=== PATIENT | male | born 1995 | race Caucasian/White ===

== ENCOUNTER 2019-08-23 09:17 | Emergency (ER) | payer BC, OTHER ==
[2019-08-23 10:48] LABS: Influenza A Molecular Negative (Negative); Influenza B Molecular Negative (Negative)
--- NOTE | 2019-08-23 11:03 | UC ---
Throat Pain/Nasal José Miguel HPI - HPI Summary HPI Summary: 23-year-old male presents with 1-1/2 week history of nasal congestion, sinus pressure, postnasal drip, and mild sore throat. No measured fever however states felt feverish and chilled 5-6 days ago although this has resolved over the last several days. No known contact with persons isolated for or diagnosed with COVID-19. Reports that he did travel one week ago and was in [facility] [place] in [place] however was already having symptoms at that time. States symptoms have been improving over the last 2-3 days. Denies ear pain, dysphagia , cough, chest pain, shortness of breath, abdominal pain, nausea, vomiting, or diarrhea. - History of Current Complaint Chief Complaint: UCGeneralIllness Stated Complaint: CONGESTION, POSS FEVER Time Seen by Provider: 08/23/19 10:16 Hx Obtained From: Patient Pain Intensity: 0 - Allergies/Home Medications Allergies/Adverse Reactions: Allergies Allergy/AdvReac Type Severity Reaction Status Date / Time No Known Allergies Allergy Verified 08/23/19 10:11 Home Medications: Home Medications NK [No Home Medications Reported] 08/23/19 [History Confirmed 08/23/19] PMH/Surg Hx/FS Hx/Imm Hx Previously Healthy: Yes - Denies significant PMH - Surgical History Surgical History: Yes Surgery Procedure, Year, and Place: knee wound debriding - Family History Family History: Denies significant FMH - Social History Occupation: Employed Full-time Lives: Alone Alcohol Use: Weekly Substance Use Type: None Smoking Status (MU): Never Smoked Tobacco Review of Systems All Other Systems Reviewed And Are Negative: Yes Constitutional: Positive: Fever - Subjective, Chills Skin: Negative: Rash Eyes: Negative: Drainage, Eye Redness ENT: Positive: Sore Throat, Nasal Discharge, Sinus Congestion, Sinus Pain/ Tenderness. Negative: Ear Ache Respiratory: Negative: Shortness Of Breath, Cough Cardiovascular: Negative: Palpitations, Chest Pain Gastrointestinal: Negative: Abdominal Pain, Vomiting, Diarrhea, Nausea Genitourinary: Positive: Negative Musculoskeletal: Positive: Negative Neurological/Mental Status: Positive: Negative Is Patient Immunocompromised?: No Physical Exam - Summary Physical Exam Summary: GENERAL APPEARANCE: Well developed, well nourished, alert and cooperative, and appears to be in no acute distress. EYES: Conjunctiva clear. No drainage. EARS: External auditory canals and tympanic membranes clear, hearing grossly intact. NOSE: Mild-moderate nasal congestion. No nasal discharge. Mild maxillary sinus tenderness. THROAT: Mild pharyngeal erythema. No tonsilar inflammation, swelling, exudate, or lesions. Uvula midline. NECK: Neck supple, non-tender without lymphadenopathy. CARDIAC: Normal S1 and S2. No S3, S4 or murmurs. Rhythm is regular. There is no peripheral edema, cyanosis or pallor. Extremities are warm and well perfused. Capillary refill is less than 2 seconds. Peripheral pulses intact. LUNGS: Clear to auscultation without rales, rhonchi, wheezing or diminished breath sounds. ABDOMEN: Positive bowel sounds. Soft, nondistended, nontender. No guarding or rebound. No masses or hepatosplenomegally. MUSKULOSKELETAL: ROM intact to all extremities. No joint erythema or tenderness. Normal muscular development. Normal gait. SKIN: Skin normal color, texture and turgor with no lesions or eruptions. Triage Information Reviewed: Yes Vital Signs: Initial Vital Signs Temp 98 F 08/23/19 10:43 Pulse 104 08/23/19 10:43 Resp 16 08/23/19 10:43 BP 138/88 08/23/19 10:43 Pulse Ox 97 08/23/19 10:43 Vital Signs Reviewed: Yes Throat Pain/Nasal Course/Dx - Course Course Of Treatment: 23-year-old male presents with 1-1/2 week history of nasal congestion, sinus pressure, postnasal drip, and mild sore throat. No measured fever however states felt feverish and chilled 5-6 days ago although this has resolved over the last several days. No known contact with persons isolated for or diagnosed with COVID-19. Reports that he did travel one week ago and was in [facility] airport in [place] however was already having symptoms at that time. States symptoms have been improving over the last 2-3 days. Denies ear pain, dysphagia , cough, chest pain, shortness of breath, abdominal pain, nausea, vomiting, or diarrhea. Afebrile. Mildly hypertensive and tachycardic otherwise vital signs stable. Patient had mild nasal congestion, mild maxillary sinus tenderness, normal TMs, mild pharyngeal erythema without tonsillar swelling or exudate, no cervical lymphadenopathy, clear bilateral breath sounds, and otherwise unremarkable exam. Rapid strep test and rapid flu test were negative. Reviewed results with the patient. We discussed that based on his history I have a very low suspicion for COVID-19 infection and I'm recommending treatment for a acute sinusitis including Augmentin 875 mg twice a day 10 days as well as symptomatic treatment. He is to follow-up with his primary care provider in 5-7 days if symptoms are not improving. Anticipatory guidance and warning symptoms were reviewed with the patient. Verbalizes understanding and agrees with plan of care. - Differential Dx/Diagnosis Differential Diagnosis/HQI/PQRI: Influenza, Pharyngitis, Sinusitis, Tonsillitis , URI, Other - COVID-19 Provider Diagnosis: Acute sinusitis Discharge ED - Sign-Out/Discharge Documenting (check all that apply): Patient Departure All imaging exams completed and their final reports reviewed: No Studies - Discharge Plan Condition: Stable Disposition: HOME Patient Education Materials: Sinusitis (ED) Forms: COVID-19 Eval & Not Tested Referrals: No Primary Care Phys,NOPCP [Primary Care Provider] - Additional Instructions: Your flu test and rapid strep test performed in the clinic today were negative. Your history and exam are consistent with a sinus infection. Based on your history I have a very low suspicion for COVID-19 infection. Considering the duration of your symptoms however we will treat you with an antibiotic for the infection. Start Augmentin 875 mg twice daily for 10 days. Take with food to avoid upset stomach. Be sure to take the entire course even if feeling better. Drink plenty of fluids to avoid dehydration. Use a saline rinse kit such as Neti Pot or NeilMed at least twice a day to help thin secretions and promote drainage of the sinuses. Use fluticasone (Flonase) nasal spray 2 sprays each nostril once daily. Use an over the counter decongestant such as Sudafed according to directions to help with congestion. Take over the counter acetaminophen (Tylenol) or ibuprofen (Advil, Motrin) according to directions as needed for pain or fever. Follow up with your primary care provider in 5-7 days if symptoms persist. It is extremely important at this time to be heeding the calls for social distancing. Social distancing is deliberately increasing the physical space between people to avoid spreading illness. Staying at least six feet away from other people lessens your chances of catching COVID-19. Examples of social distancing that allow you to avoid larger crowds or crowded spaces are: * Working from home instead of at the office * Switching to online classes * Visiting loved ones by electronic devices instead of in person * Cancelling or postponing conferences and large meetings Seek immediate medical attention in the emergency room if you have fever greater than 100.5 F despite taking acetaminophen or ibuprofen, have chest pain , difficulty breathing, are unable to swallow, or have any worsening of symptoms. - Billing Disposition and Condition Condition: STABLE Disposition: Home
== END 2019-08-23 11:15 | disposition home or self-care (01) ==
LOC: UCEAST 09:17
DX: J01.90 Acute sinusitis, unspecified (principal)
CPT/HCPCS: 87651; 99202; G0463